=== PATIENT | male | born 1975 | race Caucasian/White ===

== ENCOUNTER → 2019-08-29 13:36 | Outpatient (CLI) | payer OTHER, SELFPAY ==
--- NOTE | ~2019-08-29 | XR_ITS ---
EXAMINATION: XR abdomen/kub 1V EXAM DATE: 08/29/2019 13:54 INDICATION: Gross hematuria. TECHNIQUE: Frontal projection(s) of the abdomen for interpretation. There is no prior study for marjan ayala. Correlation was made with CT same date. FINDINGS: There is expected amount of colonic stool and gas. No small bowel dilation, nonobstructiv e bowel gas pattern. There are no suspicious calcifications identified. There is no organomegaly suspected. The bones are unremarkable. There is no free intraperitoneal air. The lung bases are clear. IMPRESSION: Cannot identify left renal calcification seen on CT. Reviewed, dictated and finalized at location A. CTURAL [employer]OP HELPER
--- NOTE | ~2019-08-29 | CT_ITS ---
EXAMINATION: CT abdomen pelvis wo/w con DATE: 08/29/2019 14:37 INDICATION: Gross hematuria TECHNIQUE: Computed tomography (CT) of the abdomen and pelvis was performed without and subsequently with 130 cc Omnipaque 350 intravenous contrast. Automated exposure control and iterative reconstructi on technique were employed. Exam dose: 2076.03 mGy-cm total exam DLP. COMPARISON: None. FINDINGS: The lung bases are clear of infiltrate or consolidation. Normal heart size. No pericardial or pleural effusion. There are scattered left and right up to 2.1 cm hepatic cysts. No bile duct dilatation. The gallbladd er appears unremarkable. No pancreatic mass lesion or calcification or ductal dilatation. Normal sple magnolia size. Normal morphology of the adrenal glands. There is a pinpoint nonobstructing mid left renal calculus. No ureteral calculus or hydroureteronephr osis. No renal mass lesion or hydroureteronephrosis. No urinary bladder mass lesion or wall thickening. Prostate enlargement and calcifications. Normal caliber of the abdominal aorta. No intraperitoneal or retroperitoneal or pelvic mass lesion or adenopathy or ascites. Normal appendix. Minimal colonic diverticulosis; no CT evidence of diverticulitis. No bowel obstructi on or intraperitoneal free air. No suspicious osteolytic or osteoblastic lesions of the included skeleton. IMPRESSION: Multiple hepatic cysts Pinpoint nonobstructing mid left renal calculus Prostate enlargement and calcifications Reviewed, dictated and finalized at [facility]. Reviewed, dictated and finalized at location B. T SERVICE CLERK
== END ==
PROVIDERS: PCP Family Medicine; Visit Provider Urology
DX: R31.0 Gross hematuria (principal); K76.89 Other specified diseases of liver; N40.1 Benign prostatic hyperplasia with lower urinary tract symptoms; N20.0 Calculus of kidney
CPT/HCPCS: 74018; 74178; Q9967